=== PATIENT | male | born 1950 | race American Indian/Alaskan Native ===

== ENCOUNTER 2017-11-29 18:33 | Emergency (ER) | payer OTHER, MEDICARE ==
[2017-11-29 18:51] VITALS: BP 167/78
[2017-11-29] MEDS ORDERED: MOTRIN PO ONE (18:59)
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
--- NOTE | 2017-11-29 20:49 | XRay Report ---
FINAL REPORT PROCEDURE: XR SPINE CERVICAL 2-3V TECHNIQUE: Cervical spine radiographs, AP, lateral, and open-mouth odontoid views. CPT 58120 HISTORY: cervical and lumbar pain COMPARISON: No prior studies are available for comparison. FINDINGS: Prevertebral soft tissues: Normal . Alignment: Normal . Vertebral body heights/Disk spaces: There is loss of disc space height at the C4-5, C5-6 and C6-7 levels. Significant spur formation off of the anterior vertebral bodies from the C4 through the C7 vertebral levels is noted. Slight posterior spur formation is identified at the same levels. No acute fracture is identified.. Fracture(s): None . Facets: Normal . Bone mineralization: Normal . IMPRESSION: No evidence of an acute fracture or dislocation of the cervical spine. Moderate cervical spondylosis and degenerative disc changes.
--- NOTE | 2017-11-29 21:43 | XRay Report ---
FINAL REPORT PROCEDURE: XR SPINE LUMBOSACRAL 2-3V TECHNIQUE: Lumbar spine radiographs, including AP, lateral, and lumbosacral spot views. CPT 17870 HISTORY: cervical and lumbar pain COMPARISON: No prior studies are available for comparison. FINDINGS: Alignment: Normal. Vertebral body heights/Disk spaces: There is slight loss of disc space height at the L5-S1 level. Mild spur formation off the vertebral bodies is identified at all levels.. Fracture(s): None. Facets: Normal. Bone mineralization: Normal. IMPRESSION: There is no evidence of an acute fracture or dislocation of the lumbar spine. Mild lumbar spondylosis and degenerative disc change as described..
== END 2017-11-29 22:03 | disposition home or self-care (01) ==
LOC: ED 18:33
DX: S39.012A Strain of muscle, fascia and tendon of lower back, initial encounter (principal); S13.4XXA Sprain of ligaments of cervical spine, initial encounter; I10 Essential (primary) hypertension; K21.9 Gastro-esophageal reflux disease without esophagitis; Z96.653 Presence of artificial knee joint, bilateral; V49.49XA Driver injured in collision with other motor vehicles in traffic accident, initial encounter; Y93.89 Activity, other specified; Y99.8 Other external cause status; Y92.488 Other paved roadways as the place of occurrence of the external cause
CPT/HCPCS: 72040; 72100; 99282